=== PATIENT | female | born 1965 | race Caucasian/White ===

== ENCOUNTER 2023-01-04 15:13 | Emergency (ER) | payer BC, SELFPAY ==
--- NOTE | 2023-01-04 15:31 | ED.GENADULT ---
HPI - General Adult General Chief complaint: Upper Respiratory Symptoms Stated complaint: COVID positive Time Seen by Provider: 01/04/23 15:40 Source: patient Mode of arrival: ambulatory Limitations: no limitations History of Present Illness HPI narrative: this is a 50-year-old female with a history of asthma who presents to the ER with complaints of URI symptoms, fatigue, headache, shortness of breath since yesterday. Patient reports she recently found out that her son has COVID and she was taking care of her grandchildren who were around him this week. Patient denies any chest pain, fevers, chills, skin rash, neck pain, neck stiffness, vomiting, diarrhea. Patient was prompted to come to the ER today because she was looking for counseling on Paxlovid treatment. She has received several COVID vaccinations. Related Data Previous Rx's Medication Instructions Recorded prednisone 20 mg tablet 60 mg (3 x 20 mg) PO DAILY #15 tabs 01/04/23 Allergies Allergy/AdvReac Type Severity Reaction Status Date / Time Sulfa (Sulfonamide Allergy Gastrointestinal Verified 01/04/23 15:31 Antibiotics) Upset Review of Systems Review of Systems: Yes all other systems are reviewed and are negative Constitutional: Constitutional: Reports no additional constitutional complaints, Denies body ache(s), Denies chills, Reports fatigue, Denies fever(s), Reports headache(s) and Denies weakness Eyes: Eyes: Reports no additional eye complaints and Denies change in vision ENT: Reports system reviewed and no additional complaints, except as documented, Denies dizziness, Reports headache(s), Denies nasal congestion, Reports nasal discharge and Denies neck pain Cardiovascular: Cardiovascular: Reports no additional cardiovascular complaints, Denies chest pain, Denies leg edema and Reports dyspnea Respiratory: Respiratory: Reports no additional respiratory complaints, Reports cough and Reports dyspnea Gastrointestinal: Gastrointestinal: Reports no additional gastrointestinal complaints, Denies abdominal pain, Denies diarrhea, Denies nausea and Denies vomiting Genitourinary: Genitourinary: Reports no additional female genitourinary complaints and Denies urinary incontinence Musculoskeletal: Musculoskeletal: Reports no additional musculoskeletal complaints, Denies back pain, Denies arthralgias, Denies joint swelling, Denies neck pain, Denies numbness and Denies tingling Integumentary/Breasts: Skin/Breast: Reports system reviewed and no additional complaints, except as docu and Denies rash Neurologic: Reports system reviewed and no additional complaints, except as documented, Denies Abnormal speech present, Denies dizziness, Reports headache(s), Denies numbness, Denies tingling and Denies weakness Endocrine: Endocrine: Reports fatigue PMF Past Medical History Attestation statement: The following information was validated with the patient. Source: old records reviewed and nursing notes reviewed Social History Social History Advance Directives: No Advance Directives Information Provided: No Physical Exam ED Vital Signs: Vital Signs - 24 hr 01/04/23 15:32 Temperature 97.8 F Pulse Rate 89 Respiratory Rate 18 Blood Pressure 132/82 Pulse Oximetry 96 Oxygen Delivery Method Room Air BMI result Body Mass Index 24.3 Const General: cooperative, healthy appearing, comfortable and no acute distress Orientation/consciousness: patient oriented x3 Limitations: no limitations HENMT Head: Yes normal to inspection Ears: hearing grossly normal bilaterally and TM's normal bilaterally General nose exam: Normal external nose present Face and sinus: Yes normal facial exam Mouth: Normal oral and palatal mucosa present Throat: Yes posterior oropharynx normal, Yes tonsils normal and Yes uvula midline Eyes General: appearance normal, both eyes and all related structures Pupils: Equal, round and reactive pupils present Neck Neck: Yes normal visual inspection, Yes full ROM, Yes no lymphadenopathy and Yes no meningeal signs Chest Chest palpation & inspection: normal inspection of the chest Resp Effort & Inspection: normal respiratory effort Auscultation: clear to auscultation bilaterally Cardio Rate: regular rate Rhythm: regular rhythm Peripheral pulses: Peripheral pulses 2+ throughout GI Inspection: Yes normal to inspection Palpation (GI): Soft to palpation and nontender Auscultation: normal bowel sounds Back/Spine/Pelvis Thoracic/Lumbar Spine: thoracic and lumbar spine normal to inspection Skin General skin exam: no rashes or lesions noted Neuro General: patient oriented x3, no meningeal signs, no focal motor deficits and normal sensation to monofilament Cranial nerves: Yes Equal, round and reactive pupils present Cognition (Neuro): normal cognition Speech: No Abnormal speech present Gait exam (Neuro): Normal gait present Motor exam (neuro): 5/5 motor strength present throughout Extrem General: Yes normal to inspection, Yes no pedal edema and Yes no calf tenderness Course Course Course Narrative: RME - 58 yo female with history of asthma and anxiety who presents to the ER for evaluation after she tested positive for COVID last night. She is interested in Paxlovid but unable to get ahold of her PCP. She is also concerned about PNA. She reports FAUST, SOB and severe fatigue. Has been using her albuterol inhaler and neb. SpO2 96%. RLL coarse but no wheezing. Plan: CXR to assess for PNA, to discuss benfits/risks of paxlovid Reevaluation(s) Reevaluation #1: chest x-ray shows no signs of pneumonia. We had extensive conversation about Paxlovid and patient will declined treatment at this time. We will discharge her home with prednisone course. Reviewed worrisome signs and symptoms of when to return to the emergency room. Comfortable plan for discharge home. Medical Decision Making Medical Decision Making [facility] Narrative: this is a 50-year-old female with a history of asthma who presents to the ER with complaints of URI symptoms, fatigue, headache, shortness of breath since yesterday. Patient reports she recently found out that her son has COVID and she was taking care of her grandchildren who were around him this week. Patient denies any chest pain, fevers, chills, skin rash, neck pain, neck stiffness, vomiting, diarrhea. Patient was prompted to come to the ER today because she was looking for counseling on Paxlovid treatment. She has received several COVID vaccinations. On exam lungs are clear. Vitals are stable. No tachypnea appreciated. Will obtain chest x-ray. I did spend about 10-15 minutes counseling the patient on Paxlovid. After discussion the patient and her decided they do not want this medication. Differential Diagnosis Differential Diagnoses: The differential diagnosis associated with the presentation includes COVID, pneumonia low concern for PE-PERC 0 Admission/Observation Consideration of admission/observation: Escalation of care including admission/observation considered no hypoxia or tachypnea to suggest need for supplemental oxygen and or admission. Independent Interpretation I performed an independent interpretation of an: Plain X-Ray Interpretation: I independently reviewed the x-ray and agree with radiology report Radiology Impression Discussion of test interpretation with radiology: I have reviewed the radiologist's reading. Radiologist Impression: [address] [address] XRay Report Signed Patient: Makenzie Alvarado MR#: [id number] : 1965 Acct:[id number] Age/Sex: 58 / F ADM Date: 01/04/23 Loc: HO.ED Attending Dr: Ordering Physician: Fernanda Sánchez Date of Service: 01/04/23 Procedure(s): XR chest 2V Accession Number(s): [id number] cc: Fernanda Sánchez; Cosmo Peng~ EXAMINATION: XR CHEST CLINICAL INFORMATION: Shortness of breath COMPARISON: None available. TECHNIQUE: 2 views of the chest were obtained. FINDINGS: No significant abnormality is noted involving the heart, lungs, mediastinum, bony thorax or soft tissues. XR/XR chest 2V IMPRESSION: Unremarkable examination. Independent Historian Clinical information obtained from an independent historian. History obtained from or confirmed by: Spouse Tests considered The following testing was considered but not selected: Perc score is negative. No hypoxia or tachypnea to suggest need for CTA to rule out PE Prescription Management I considered prescription management with: Antiviral see discussion above in regards to paxlovid Discharge Plan Discharge Clinical Impression: COVID-19 Patient Disposition: Home, Self-Care Instructions: COVID-19 (Coronavirus Disease 2019) (ED) Additional Instructions: take Motrin or Tylenol for any pain or fever Increase fluids, rest Take the prednisone as prescribed Continue your albuterol home as needed Prescriptions: New prednisone 20 mg tablet 60 mg PO DAILY Qty: 15 0RF Referrals: Physician,Unknown J [Physician] - 1 week Stand Alone Forms: Work/School Release
[2023-01-04 15:32] VITALS: BP 132/82; PULSE 89; RESP 18; TEMP 36.6; O2SAT 96; BMI 24.3
== END 2023-01-04 18:17 | disposition home or self-care (01) ==
PROVIDERS: Emergency Provider Emergency Medicine; PCP Physician Assistant Medical
DX: U07.1 COVID-19 (principal); R06.02 Shortness of breath
CPT/HCPCS: 71046; 99282; 99283

== ENCOUNTER 2023-01-08 16:06 | Emergency (ER) | payer BC, SELFPAY ==
--- NOTE | ~2023-01-08 | XR_ITS ---
EXAMINATION: XR CHEST CLINICAL INFORMATION: Chest pain COMPARISON: Previous chest x-ray 01/04/2023 TECHNIQUE: 2 views of the chest were obtained. FINDINGS: No significant abnormality is noted involving the heart, lungs, mediastinum, bony thorax or soft tissues. XR/XR chest 2V IMPRESSION: Unremarkable examination.
--- NOTE | 2023-01-08 16:20 | ECG_ITS ---
Test Reason : CHEST PAIN Blood Pressure : / mmHG Vent. Rate : 091 BPM Atrial Rate : 091 BPM P-R Int : 136 ms QRS Dur : 074 ms QT Int : 346 ms P-R-T Axes : 052 032 046 degrees QTc Int : 425 ms Normal sinus rhythm Possible Left atrial enlargement Borderline ECG No previous ECGs available Referred By: Generic ED Physician Electronically Signed By:BALJINDER LANGE MD
[2023-01-08 16:47] VITALS: BP 162/77; PULSE 80; RESP 18; TEMP 36.9; O2SAT 98; BMI 24.3
--- NOTE | 2023-01-08 16:52 | ED_ITS ---
HPI - General Adult General Chief complaint: Chest Pain Stated complaint: Covid+, chest pain, L body pain Time Seen by Provider: 01/08/23 21:07 Source: patient and family () Mode of arrival: ambulatory History of Present Illness HPI narrative: 58-year-old female with known COVID positivity and currently taking daily prednisone has complaints for left-sided radiating pain and shortness of breath. Related Data Previous Rx's Medication Instructions Recorded prednisone 20 mg tablet 60 mg (3 x 20 mg) PO DAILY #15 tabs 01/04/23 Allergies Allergy/AdvReac Type Severity Reaction Status Date / Time Sulfa (Sulfonamide Allergy Gastrointestinal Verified 01/04/23 15:31 Antibiotics) Upset Review of Systems 2 Review of Systems: Pertinent positives and negatives as stated in HPI PMFSH Past Medical History Source: nursing notes reviewed Social History Social History Advance Directives: No Advance Directives Information Provided: No Physical Exam ED Vital Signs: Vital Signs - 24 hr 01/08/23 16:47 01/08/23 20:22 01/08/23 21:20 Temperature 98.5 F 97.1 F 98.3 F Pulse Rate 80 86 69 Respiratory Rate 18 18 18 Blood Pressure 162/77 H 177/99 H 182/95 H Pulse Oximetry 98 99 99 Oxygen Delivery Method Room Air Room Air Room Air BMI result Body Mass Index 24.3 VITAL SIGNS: Reviewed. GENERAL: Well developed, well nourished, in no acute distress. HEAD: Normocephalic/atraumatic EYES: PERRLA, EOMI OROPHARYNX: no oral lesions noted, posterior pharynx clear NECK: Supple, no adenopathy LUNGS: Normal breath sounds. No adventitious sounds or accessory muscle use. SpO2<99> CARDIOVASCULAR: Regular rate and rhythm without noted murmurs ABDOMEN: Soft, non-tender, non-distended with bowel sounds. MUSCULOSKELETAL: No tenderness, deformities, or effusions noted on gross inspection. EXTREMITIES: No cyanosis, clubbing or edema. SKIN: Inspection of the skin reveals no rashes NEUROLOGIC: Alert and oriented x 4. Strength and sensation to light touch were grossly intact x 4. Course Course Course Narrative: This is an RME: Additional HPI, ROS, PE not included below will be deferred to primary provider. This is a 50-year-old female, with a past medical history of asthma, presented to the ER with complaints of cough, headache, shortness of breath, and left- sided chest pain. Patient tested positive for COVID on January 04 in the emergency department. She was placed on prednisone which she has been taking which has provided her with some relief. She reports that she is feeling she is feeling shaky. Vital signs stable. Plan: Labs, EKG, chest x-ray Medical Decision Making Medical Decision Making [facility] Narrative: 58-year-old female with history and clinical presentation, DDX: Viral syndrome secondary to COVID 19 positive infection, gastritis/acid reflux, doubt bacterial pneumonia, doubt primary ACS I reviewed all investigations and hematologic indices negative for leukocytosis, there is a mild left shift but no anemia or thrombocytopenia. Chemistry indices demonstrate a mildly elevated glucose level consistent with steroid use, otherwise there is no LIV her electrolyte abnormalities. There is noted elevation of the transaminases and alkaline phosphatase without elevated lipase and no right upper quadrant pain in suspect that this is secondary to home medications in combination with the steroids. High sensitivity troponin is undetectable. EKG demonstrates normal sinus rhythm without significant ST changes. X-ray without infiltrate and otherwise my interpretation is in agreement with radiology's impression. 58-year-old female with musculoskeletal pain secondary to coughing due to the viral illness, pain is likely contributed as well by the use of steroids which has increased acid production affecting both patient's blood pressure as well as glucose levels. She is otherwise hemodynamically stable and does not demonstrate any tachycardia, tachypnea and is oxygenating well on room air. She was reassured and discharged home. Differential Diagnosis Differential Diagnoses: The differential diagnosis associated with the presentation includes Please see the discussion above Admission/Observation Consideration of admission/observation: Escalation of care including admission/observation considered Please see the discussion above Lab Data [facility] Lab Attestation statement: I reviewed the patient's lab results. Please see the discussion above 01/08/23 17:23 01/08/23 17:23 Labs: Lab Results 01/08/23 Range/Units 17:23 WBC 7.5 (4.8-10.8) X10*3/uL RBC 4.80 (4.20-5.50) X10*6/uL Hgb 14.2 (12.0-16.0) g/dl Hct 42.0 (37.0-47.0) % MCV 87.5 (80.0-98.0) fL MCH 29.6 (27.0-33.0) pg MCHC 33.8 (31.0-35.0) g/dl RDW 12.0 (11.0-16.0) % Plt Count 203 (160-400) X10*3/uL MPV 9.7 (9.4-12.3) fL Immature Gran % (Auto) 1.5 H (0.0-0.4) % Neut % (Auto) 83.3 H (45-73) % Lymph % (Auto) 12.6 L (20-40) % Labette % (Auto) 2.4 (2-11) % Eos % (Auto) 0.1 (0-4) % Baso % (Auto) 0.1 (0-2) % Lymph # (Auto) 0.9 L (1.2-4.9) X10*3/uL [place]ette # (Auto) 0.2 (0.1-1.2) X10*3/uL Eos # (Auto) 0.0 (0.0-0.4) X10*3/uL Baso # (Auto) 0.0 (0.0-0.2) X10*3/uL Abs Immat Gran (auto) 0.11 H (0.00-0.03) X10*3/uL Absolute Neuts (auto) 6.2 (2.0-8.3) x10*3/uL Absolute Nucleated RBC 0.000 (0.0-0.012) X10*3/uL Nucleated RBC % (auto) 0.0 (0.0-0.2) /100WBC Sodium 142 (135-145) mmol/L Potassium 4.2 (3.3-5.1) mmol/L Chloride 105 (96-108) mmol/L Carbon Dioxide 25 (22-29) mmol/L Anion Gap 16 (12-20) BUN 11 (9-16) mg/dL Creatinine 0.83 (0.5-1.4) mg/dL Estim Creat Clear Calc 74.5 Estimated GFR > 60 Random Glucose 142 H (60-115) mg/dL Calcium 10.2 (8.4-10.2) mg/dL Magnesium 2.1 (1.6-2.6) mg/dL Total Bilirubin 0.4 (0.0-1.0) mg/dL Direct Bilirubin 0.1 (0.0-0.5) mg/dL AST 46 H (5-31) U/L ALT 100 H (0-31) U/L Alkaline Phosphatase 120 H (39-117) U/L Troponin I High Sens < 2.7 (<3.5-17.0) ng/L Total Protein 7.6 (6.5-8.0) g/dL Albumin 4.6 (3.5-5.0) g/dL Lipase 22 (8-78) U/L Independent Interpretation I performed an independent interpretation of an: EKG Interpretation: Normal sinus rhythm, HR-91, no STEMI, NH/QRS/QTC is within normal limits. Radiology Impression Discussion of test interpretation with radiology: I have reviewed the radiologist's reading. Radiologist Impression: Please see the discussion above Chronic Conditions Patient?s care impacted by: Other Anxiety Discharge Plan Discharge Clinical Impression: COVID-19, Atypical chest pain Patient Disposition: Home, Self-Care Instructions: COVID-19 (Coronavirus Disease 2019) (ED) Additional Instructions: 1. Resume all home medications as prescribed. 2. On review of your workup my interpretation is that you are suffering from significant acid reflux due to the steroids that you are currently taking, this is also affecting your blood pressure. I do recommend [id number] famotidine (Zantac) in combination with the Gaviscon. 3. Stay well hydrated. Return to the ER for any worsening symptoms. Prescriptions: No Action prednisone 20 mg tablet 60 mg PO DAILY Qty: 15 0RF Referrals: Cosmo Peng PA [Primary Care Provider] -
[2023-01-08 17:33] LABS: MANUAL DIFF FLAG NO
[2023-01-08 17:34] LABS: Basophils Percent Auto 0.1 % (0-2); Eosinophils Percent Auto 0.1 % (0-4); Hemoglobin 14.2 g/dl (12.0-16.0); Imm Gran Abs Auto 0.11 X10*3/uL (0.00-0.03); Imm Gran Pct Auto 1.5 % (0.0-0.4); Lymphocytes Absolute Auto 0.9 X10*3/uL (1.2-4.9); Lymphocytes Percent Auto 12.6 % (20-40); Mean Corpuscular HGB Conc 33.8 g/dl (31.0-35.0); Mean Corpuscular Hemoglobin 29.6 pg (27.0-33.0); Mean Corpuscular Volume 87.5 fL (80.0-98.0); Mean Platelet Volume 9.7 fL (9.4-12.3); Monocytes Absolute Auto 0.2 X10*3/uL (0.1-1.2); Monocytes Percent Auto 2.4 % (2-11); Neutrophils Absolute Auto 6.2 x10*3/uL (2.0-8.3); Neutrophils Percent Auto 83.3 % (45-73); Platelet Count 203 X10*3/uL (160-400); White Blood Count 7.5 X10*3/uL (4.8-10.8)
[2023-01-08 17:49] LABS: Alanine Aminotransferase 100 U/L (0-31); Albumin Level 4.6 g/dL (3.5-5.0); Alkaline Phosphatase 120 U/L (39-117); Anion Gap 16 (12-20); Aspartate Amino Transferase 46 U/L (5-31); Bilirubin Direct 0.1 mg/dL (0.0-0.5); Bilirubin Total 0.4 mg/dL (0.0-1.0); Blood Urea Nitrogen 11 mg/dL (9-16); Calcium 10.2 mg/dL (8.4-10.2); Carbon Dioxide 25 mmol/L (22-29); Chloride 105 mmol/L (96-108); Creatinine Clr Calc Pharmacy 74.5; Estimated Glomerular Filt Rate > 60; Glucose Random 142 mg/dL (60-115); Lipase 22 U/L (8-78); Magnesium 2.1 mg/dL (1.6-2.6); Potassium 4.2 mmol/L (3.3-5.1); Sodium 142 mmol/L (135-145); Total Protein 7.6 g/dL (6.5-8.0)
[2023-01-08 17:57] LABS: Troponin-I High Sensitivity < 2.7 ng/L (<3.5-17.0)
[2023-01-08 20:22] VITALS: BP 177/99; PULSE 86; RESP 18; TEMP 36.2; O2SAT 99
[2023-01-08 21:20] VITALS: BP 182/95; PULSE 69; RESP 18; TEMP 36.8; O2SAT 99
--- NOTE | 2023-01-08 21:23 | PC.NURSE ---
Pt brought back to [facility], vital signs updated, pt reporting intermittent CP radiating up left side of neck. Pt stated she tested her self for covid at home on Friday and it came up positive. Pt reporting SOB/fatigue/cough/heartburn. Pt stated I feel like I'm breathing through a straw. Plan of care ongoing
[2023-01-08 22:24] VITALS: BP 147/92; PULSE 67; RESP 16; TEMP 36.7; O2SAT 98
== END 2023-01-08 22:37 | disposition home or self-care (01) ==
PROVIDERS: Physician Assistant Medical; Emergency Provider Student in an Organized Health Care Education/Training Program; PCP Physician Assistant Medical
DX: U07.1 COVID-19 (principal); R07.89 Other chest pain; R06.02 Shortness of breath; R05.9 Cough, unspecified
CPT/HCPCS: 36415; 71046; 80048; 80076; 83690; 83735; 84484; 85025; 93005; 99283; 99284